=== PATIENT | male | born 1980 | race Caucasian/White ===

== ENCOUNTER 2022-03-12 06:20 | Inpatient (IN) ==
[2022-03-12] MEDS ORDERED: CeFAZolin Syr 2,000MG/20 ML 2,000 MG/20 ML SYRINGE IVPB ONE (06:40)
[2022-03-12] MEDS ORDERED: Ringers Solution, Lactated 1,000 ML IVC SCH (06:45)
[2022-03-12] MEDS ORDERED: *HR* Propofol 200 MG/20 ML VIAL IVP ONE (07:09)
[2022-03-12] MEDS ORDERED: *HR* Midazolam HCl 2 MG/2 ML VIAL ONE (07:09)
[2022-03-12] MEDS ORDERED: *HR* FentaNYL (PF) 100 MCG/2 ML VIAL ONE ×2 (07:09→08:02)
[2022-03-12] MEDS ORDERED: Ondansetron 4 MG/2 ML VIAL ONE (07:13)
[2022-03-12] MEDS ORDERED: Lidocaine -MPF 2% 5 ML VIAL ONE (07:13)
[2022-03-12] MEDS ORDERED: Ondansetron 4 MG/2 ML VIAL IVP PRN (07:32)
[2022-03-12] MEDS ORDERED: *HR* FentaNYL (PF) 100 MCG/2 ML VIAL IVP PRN (07:32)
[2022-03-12] MEDS ORDERED: Promethazine 6.25 MG in Water for inj. (sterile) 20 ML IVPB PRN (07:32)
[2022-03-12] MEDS ORDERED: Lidocaine HCL 4 ML Topical Solution (Laryng-O-Jet Kit Sterile Pak) TP ONE (07:40)
[2022-03-12] MEDS ORDERED: Ketorolac 30 MG/ML VIAL ONE (08:01)
[2022-03-12] MEDS ORDERED: *HR* HYDROcodone/Acet 5/325 mg TABLET PO PRN (11:14)
[2022-03-12] MEDS: 0.9 % Sodium Chloride 1,000 ML IVC SCH (11:31)
[2022-03-12] MEDS: Ketorolac 30 MG/ML VIAL IVP SCH ×2 (12:09→18:10)
[2022-03-12] MEDS: Gabapentin 300 MG CAPSULE PO SCH ×2 (15:15→20:28)
[2022-03-13] MEDS: 0.9 % Sodium Chloride 1,000 ML IVC SCH (02:22)
[2022-03-13] MEDS: Ketorolac 30 MG/ML VIAL IVP SCH ×2 (02:32→06:00)
[2022-03-13] MEDS: Gabapentin 300 MG CAPSULE PO SCH (07:44)
[2022-03-13 08:31] VITALS: BP 127/91; PULSE 91; TEMP 97.9; O2SAT 97
== END 2022-03-13 10:18 | disposition home or self-care (01) | DRG 517 ==
LOC: SAMDAY 06:20 → 2NNU 10:42
PROVIDERS: ADMIT Thoracic Surgery (Cardiothoracic Vascular Surgery); ATTEND Thoracic Surgery (Cardiothoracic Vascular Surgery)